=== PATIENT | female | born 1955 | race African-American/Black ===

== ENCOUNTER 2020-01-24 15:24 | Emergency (ER) | payer OTHER ==
[2020-01-24] MEDS ORDERED: ACETAMINOPHEN 325 MG TABLET (FP) PO ONE (15:39)
--- NOTE | 2020-01-24 15:44 | PDOC ---
Attending Attestation - Resident Resident Name: Russell Hussein - ED Attending Attestation I have performed the following: I have examined & evaluated the patient, The case was reviewed & discussed with the resident, I agree w/resident's findings & plan - HPI HPI: 01/24/20 15:41 64 y/o female fell at work today injuring right knee and elbow. Has not taken anything. No chest pain, SOB , fever or chills. Slipped and fell. - Physicial Exam PE: 01/24/20 15:42 VS stable HEENT: unremarkable, neck supple no spinous process tenderness HEART: RRR w/o murmur Lungs: CTA b/l, no wheezing ABD: soft nontender+BS EXT eight knee tender, full ROM, mild tenderness to right medial meniscus, right forearm with large hematoma and abrasion, full ROM at right elbow noted Neuro: strength 5+/5 b/l in UE and LE, no focal deficits noted - Medical Decision Making 01/24/20 15:44 64 y/o female s/p fall Will give pain medication and obtain x-rays 01/24/20 16:56 Xray right elbow no fracture x-ray right forearm: soft tissue swelling no fracture Right knee x-ray no fracture seen Final dx: contusion forearm/knee Ice, Motrin, rest If worsen return to ER Case discussed and reviewed with Dr. Hussein
[2020-01-24] MEDS ORDERED: ACETAMINOPHEN 325 MG TABLET (FP) ONE (15:51)
--- NOTE | 2020-01-24 15:51 | PDOC ---
History of Present Illness - General Chief Complaint: Pain Stated Complaint: RT ELBOW PAIN Time Seen by Provider: 01/24/20 15:29 History Source: Patient, Family (Son at bedside) Exam Limitations: No Limitations - History of Present Illness Initial Comments: HPI: 64 y/o female presenting to [place] ER complaining of pain and swelling to right elbow and right knee after falling at approx. 12:45 this afternoon. Pt fell down approx. 1-2 stairs onto the right side of her body. First struck the right elbow then the right knee. Denies striking her head or her neck. Denies LOC or N/V. Assisted to her feet by bystanders. Medical Hx: - HTN - HLD Review of Systems: In addition to that documented in the HPI above, the additional ROS was obtained : Constitutional- Denies fevers or chills ENMT- Denies sore throat CV- Denies chest pain Resp- Denies SOB GI- Denies vomiting or diarrhea MSK- Per HPI Physical Examination: Vital signs and nursing notes reviewed. Constitutional- Well-developed, well-nourished adult female in no acute distress but mild obvious discomfort. Initially observed ambulating unassisted into the department. Found semi-fowlers on hospital bed. Answered all questions appropriately and completely. Head- Normocephalic. No obvious external signs of trauma. No point tenderness. Neck- Supple, trachea is midline. No midline c-spine tenderness. Cardiovascular / Chest- Regular rate and regular rhythm. No murmur, rubs, clicks , or gallops. Peripheral pulses- radial pulses full. Respiratory- Breathing unlabored. Equal chest rise and fall. Clear to auscultation bilaterally. No stridor, no wheezing, no rhonchi. Gastrointestinal- abdomen is soft, non-tender, non-distended. Neuro- Alert and oriented x4. Moving all four extremities spontaneously. No facial asymmetry. No slurred speech. MSK- Pelvis stable and nontender with lateral compression. Right upper extremity- Point tenderness, hematoma, and skin abrasion overlying medial aspect of elbow and proximal forearm. Able to flex and extend the elbow actively. 3+ radial pulse. Able to flex wrist, extend wrist, oppose thumb, abduct fingers, and adduct fingers. Sensation intact. Right knee- mildly swollen with diffuse tenderness to medial aspect. Normal active ROM. Able to bare weight. Distal sensation intact. Skin- Warm and dry. No active bleeding. Psych- Affect- appropriate. Mood- normal. Speech was non-labored, non- pressured. MDM: 64 y/o female presenting with right elbow and right knee pain s/p fall on stairs. Afebrile. Vitals unremarkable for hypotension or tachycardia. Physical exam as described above. Plain films of elbow and knee unremarkable for acute fracture or dislocation per ED wet read. Radiology report pending. Suspect likely hematoma and soft tissue injury. Ordered Tylenol for pain relief. Discussed physical exam and radiology findings with pt. Answered all questions. Provided return precautions. pt expressed verbal understanding and agreement with plan to discharge home with outpatient follow up. Russell Hussein M.D., PGY2 Emergency Medicine Resident Past History - Past Medical History Allergies/Adverse Reactions: Allergies Allergy/AdvReac Type Severity Reaction Status Date / Time No Known Allergies Allergy Verified 01/24/20 15:35 Home Medications: Ambulatory Orders Amlodipine Besylate/Benazepril [Amlodipine-Benazepril 5-10 mg] 1 each PO DAILY 01/24/20 Rosuvastatin Calcium [Crestor] 20 mg PO DAILY 01/24/20 COPD: No Hypercholesterolemia: Yes - Psycho Social/Smoking Cessation Hx Smoking History: Never smoked Have you smoked in the past 12 months: No Information on smoking cessation initiated: No Hx Alcohol Use: No Drug/Substance Use Hx: No *Physical Exam - Vital Signs Last Vital Signs Temp Pulse Resp BP Pulse Ox 98.1 F 92 H 20 148/92 98 01/24/20 15:26 01/24/20 15:26 01/24/20 15:26 01/24/20 15:26 01/24/20 15:26 ED Treatment Course - RADIOLOGY Radiology Studies Ordered: Category Date Time Status ELBOW-RIGHT [RAD] Stat Radiology 01/24/20 15:38 Ordered FOREARM- RIGHT [RAD] Stat Radiology 01/24/20 15:38 Ordered KNEE 3 POS-RIGHT [RAD] Stat Radiology 01/24/20 15:38 Ordered Discharge - Discharge Information Problems reviewed: Yes Clinical Impression/Diagnosis: Right medial knee pain Traumatic hematoma of right elbow Qualifiers: Encounter type: initial encounter Qualified Code(s): S50.01XA - Contusion of right elbow, initial encounter Fall down stairs Qualifiers: Encounter type: initial encounter Qualified Code(s): W10.8XXA - Fall (on) (from ) other stairs and steps, initial encounter Condition: Good Disposition: HOME - Admission No - Follow up/Referral - Patient Discharge Instructions Patient Printed Discharge Instructions: How To Perform RICE (Rest, Ice, Compress, Elevate), DI for Blunt Trauma Additional Instructions: You were seen today for right elbow and right knee pain after falling. Your plain films do not show any fractures or dislocations. You likely have a bad bruise with swelling. This may continue to be sore for the next few days. Rest the arm and the leg. Avoid heavy lifting. I have attached a packet with information on ways to help with the pain. You can take over the counter Tylenol or Advil as needed for pain. Take as directed on the package insert. Do not exceed the recommended dosage. Follow up with your primary care doctor in the next week or as needed. You will need to call to make an appointment. The number is included in this packet. Go to the nearest emergency department if your condition worsens or you feel like you need additional emergency evaluation. Print Language: ITALIAN - Post Discharge Activity Work/Back to School Note: Back to Work
[2020-01-24 15:56] VITALS: TEMP 98.1; BMI 24.3
[2020-01-24 17:02] VITALS: BP 149/99; PULSE 72
== END 2020-01-24 17:34 | disposition home or self-care (01) ==
LOC: FER 15:24
DX: S50.01XA Contusion of right elbow, initial encounter (principal); W10.8XXA Fall (on) (from) other stairs and steps, initial encounter; E78.00 Pure hypercholesterolemia, unspecified; W18.39XA Other fall on same level, initial encounter; Y93.89 Activity, other specified; Y92.89 Other specified places as the place of occurrence of the external cause
CPT/HCPCS: 73070-TC-RT-FY; 73090-TC-RT-FY; 73562-TC-RT-FY; 99283-25

== ENCOUNTER 2021-05-13 06:27 | Emergency (ER) | payer BC, OTHER ==
[2021-05-13 06:42] VITALS: BP 128/88; PULSE 78; TEMP 98.1; BMI 24.4
[2021-05-13] MEDS ORDERED: OXYMETAZOLINE 0.05% NASAL SOLUTION 15 ML BOTTLE NS ONE ×2 (07:18→07:23)
== END 2021-05-13 07:34 | disposition home or self-care (01) ==
LOC: FER 06:27
DX: R04.0 Epistaxis (principal)
CPT/HCPCS: 99283-25